=== PATIENT | male | born 1940 | race Caucasian/White ===

== ENCOUNTER 2016-11-20 18:40 | Inpatient (IN) | payer MEDICARE, OTHER ==
[~2016-11-20] VITALS: Ht 172.7 cm; Wt 85.8 kg
[~2016-11-20 18:40] MED LIST: AMLO10TA2 PO; ASPI-496 PO; ATOR40TA78 PO; CHLO25TA PO; CYAN2000 PO; DIPH25TA28 PO; HYDR25TA6 PO; IRON18TA PO; LISI40TA PO; METF500T4 PO; METO-99 PO; OMEP-110 PO; Oxygen NAS; POLY255P PO; PRAV40TA2 PO
[2016-11-20] MEDS ORDERED: ASPIRIN 81 MG TABLET CHEW PO ONE (19:30)
[2016-11-20] MEDS ORDERED: ASPIRIN 81 MG TABLET CHEW ONE (20:35)
[2016-11-20 21:52] LABS: HEMOGLOBIN 11.9 g/dL (13.7-18.0)
[2016-11-20 22:04] LABS: ASPARTATE AMINO TRANSFERASE 8 U/L (15-37); BLOOD UREA NITROGEN 27 mg/dL (7-18)
[2016-11-20 22:13] LABS: IS PT STATUS REG ER OR PRE ER? YES
[2016-11-20] MEDS ORDERED: OMNIPAQUE 350 MG/ML, 100ML BOTTLE ONE (22:16)
[2016-11-20] MEDS ORDERED: SODIUM CHLORIDE 0.9% 1,000ML IVBOLUS ONE (22:30)
[2016-11-20] MEDS ORDERED: LEVOFLOXACIN/PMX 750MG/150ML 150 ML ONE (23:27)
[2016-11-20] MEDS ORDERED: LEVOFLOXACIN/PMX 750MG/150ML 150 ML IV ONE (23:30)
[2016-11-21 01:50] VITALS: BP 128/59
[2016-11-21 02:00] VITALS: BP 128/59
[2016-11-21] MEDS: SODIUM CHLORIDE 0.9% 1,000 ML IV SCH ×2 (02:03→09:38)
[2016-11-21] MEDS ORDERED: HEPARIN 5,000 UNITS/ML, 1ML SQ SCH (02:30)
[2016-11-21] MEDS ORDERED: POLYETHYLENE GLYCOL 17 GM PACKET PO PRN (02:30)
[2016-11-21] MEDS ORDERED: ONDANSETRON ODT 4 MG PO PRN (02:30)
[2016-11-21] MEDS ORDERED: TRAZODONE 50MG TABLET PO PRN (02:30)
[2016-11-21] MEDS ORDERED: ACETAMINOPHEN 325 MG TABLET PO PRN (02:30)
[2016-11-21] MEDS ORDERED: DOCUSATE 100 MG CAPSULE PO PRN (02:30)
[2016-11-21] MEDS ORDERED: LABETALOL 5MG/ML, 20ML IV PRN (02:30)
[2016-11-21] MEDS ORDERED: BISACODYL 10 MG SUPP PR PRN (02:30)
[2016-11-21] MEDS: CEFTRIAXONE PMX 2GM/50ML 50 ML IV SCH (02:51)
[2016-11-21] MEDS: AZITHROMYCIN 500 MG in SODIUM CHLORIDE 0.9% 250 ML IV SCH (03:41)
[2016-11-21 06:07] LABS: HEMOGLOBIN 9.9 g/dL (13.7-18.0)
[2016-11-21 06:17] LABS: BLOOD UREA NITROGEN 24 mg/dL (7-18)
[2016-11-21] MEDS: ALBUTEROL/IPRATROPIUM 2.5MG/0.5MG, 3 ML NPPB SCH ×4 (07:15→20:30)
[2016-11-21 07:28] VITALS: BP 89/46
[2016-11-21] MEDS ORDERED: CHLORTHALIDONE 25 MG TABLET PO SCH (09:00)
[2016-11-21] MEDS ORDERED: ASPIRIN 81 MG TABLET EC PO SCH (09:00)
[2016-11-21] MEDS ORDERED: LISINOPRIL 20 MG TABLET PO SCH (09:00)
[2016-11-21] MEDS: INSULIN ASPART 100 UNITS/ML, PEN SQ-INSULIN SCH ×4 (09:00→21:51)
[2016-11-21] MEDS ORDERED: METOPROLOL TARTRATE 100 MG TABLET PO SCH (09:00)
[2016-11-21] MEDS ORDERED: AMLODIPINE 5 MG TABLET PO SCH (09:00)
[2016-11-21] MEDS: OMEPRAZOLE 20 MG CAPSULE.DR PO SCH (09:40)
[2016-11-21] MEDS: FERROUS SULFATE 325 MG TABLET PO SCH (09:40)
[2016-11-21] MEDS: CYANOCOBALAMIN 1,000 MCG TABLET PO SCH (09:41)
[2016-11-21] MEDS ORDERED: MAGNESIUM SULFATE PMX 2GM/50ML 50 ML IV ONE (11:00)
[2016-11-21 11:58] LABS: HEMOGLOBIN 10.7 g/dL (13.7-18.0)
[2016-11-21 13:28] VITALS: BP 112/59
[2016-11-21] MEDS ORDERED: OMNIPAQUE 350 MG/ML, 100ML BOTTLE ONE (18:06)
[2016-11-21 20:11] VITALS: BP 116/62
[2016-11-21] MEDS: ATORVASTATIN 40 MG TABLET PO SCH (21:50)
[2016-11-22 01:40] VITALS: BP 112/57
[2016-11-22] MEDS: SODIUM CHLORIDE 0.9% 1,000 ML IV SCH ×2 (02:39→12:32)
[2016-11-22] MEDS: CEFTRIAXONE PMX 2GM/50ML 50 ML IV SCH (02:40)
[2016-11-22] MEDS: AZITHROMYCIN 500 MG in SODIUM CHLORIDE 0.9% 250 ML IV SCH (04:10)
[2016-11-22 06:40] VITALS: BP 90/51
[2016-11-22] MEDS: ALBUTEROL/IPRATROPIUM 2.5MG/0.5MG, 3 ML NPPB SCH ×4 (06:55→21:00)
[2016-11-22] MEDS: INSULIN ASPART 100 UNITS/ML, PEN SQ-INSULIN SCH ×3 (08:22→20:41)
[2016-11-22] MEDS: CYANOCOBALAMIN 1,000 MCG TABLET PO SCH (08:53)
[2016-11-22] MEDS: FERROUS SULFATE 325 MG TABLET PO SCH (08:54)
[2016-11-22] MEDS: OMEPRAZOLE 20 MG CAPSULE.DR PO SCH (08:54)
[2016-11-22] MEDS ORDERED: METOPROLOL TARTRATE 100 MG TABLET PO SCH (09:00)
[2016-11-22 12:28] VITALS: BP 125/64
[2016-11-22] MEDS ORDERED: FLUTICASONE/VILANTEROL 200-25MCG/INH INH ONE (13:00)
[2016-11-22 19:58] VITALS: BP 119/58
[2016-11-22] MEDS: ATORVASTATIN 40 MG TABLET PO SCH (20:41)
[2016-11-23] MEDS: CEFTRIAXONE PMX 2GM/50ML 50 ML IV SCH (02:51)
[2016-11-23 03:48] VITALS: BP 116/55
[2016-11-23] MEDS: AZITHROMYCIN 500 MG in SODIUM CHLORIDE 0.9% 250 ML IV SCH (04:20)
[2016-11-23 06:08] LABS: BLOOD UREA NITROGEN 24 mg/dL (7-18)
[2016-11-23 06:41] LABS: HEMOGLOBIN 10.3 g/dL (13.7-18.0)
[2016-11-23 06:42] LABS: DIFF TOTAL CELLS COUNTED 100 CELL DIFF
[2016-11-23 06:45] LABS: ANISOCYTOSIS 1+; HYPOCHROMIA 1+
[2016-11-23 06:46] LABS: POLYCHROMASIA 1+
[2016-11-23 06:47] LABS: VERIFY COUNTS? YES
[2016-11-23 07:06] VITALS: BP 120/52
[2016-11-23] MEDS: ALBUTEROL/IPRATROPIUM 2.5MG/0.5MG, 3 ML NPPB SCH ×3 (07:15→14:16)
[2016-11-23] MEDS ORDERED: AZIT500T4 PO (07:43)
[2016-11-23] MEDS ORDERED: ALBU8.5H3 INH (07:43)
[2016-11-23] MEDS ORDERED: FLUT1BLS INH (07:43)
[2016-11-23] MEDS ORDERED: METH4TAB2 PO (07:43)
[2016-11-23] MEDS ORDERED: CEFD300C2 PO (07:43)
[2016-11-23] MEDS: INSULIN ASPART 100 UNITS/ML, PEN SQ-INSULIN SCH ×2 (08:00→13:00)
[2016-11-23] MEDS ORDERED: FLUTICASONE/VILANTEROL 200-25MCG/INH INH SCH (09:00)
[2016-11-23] MEDS: CYANOCOBALAMIN 1,000 MCG TABLET PO SCH (09:51)
[2016-11-23] MEDS: OMEPRAZOLE 20 MG CAPSULE.DR PO SCH (09:51)
[2016-11-23] MEDS: FERROUS SULFATE 325 MG TABLET PO SCH (09:51)
== END 2016-11-23 18:48 | disposition home or self-care (01) | DRG 871 ==
LOC: ED 20:53 → EDIP 11-21 00:02 → 4WST 11-21 01:47
PROVIDERS: ADMIT Internal Medicine
DX: A41.9 Sepsis, unspecified organism (principal); J96.21 Acute and chronic respiratory failure with hypoxia; J18.9 Pneumonia, unspecified organism; E87.1 Hypo-osmolality and hyponatremia; J44.0 Chronic obstructive pulmonary disease with (acute) lower respiratory infection; J44.1 Chronic obstructive pulmonary disease with (acute) exacerbation; D64.9 Anemia, unspecified; E78.5 Hyperlipidemia, unspecified; E11.22 Type 2 diabetes mellitus with diabetic chronic kidney disease; I25.10 Atherosclerotic heart disease of native coronary artery without angina pectoris; I73.9 Peripheral vascular disease, unspecified; R91.1 Solitary pulmonary nodule; I13.10 Hypertensive heart and chronic kidney disease without heart failure, with stage 1 through stage 4 chronic kidney disease, or unspecified chronic kidney disease; N18.3 Chronic kidney disease, stage 3 (moderate); Z87.891 Personal history of nicotine dependence; Z90.49 Acquired absence of other specified parts of digestive tract; Z88.1 Allergy status to other antibiotic agents; Z82.49 Family history of ischemic heart disease and other diseases of the circulatory system
CPT/HCPCS: 36415; 71020; 71275; 72220; 80048; 80053; 82306; 82607; 82962; 83036; 83735; 83880; 84484; 85014; 85018; 85025; 87040; 93005; 94640; 96361; 96365; 96366; J0456; J0696; J1644; J1956; J7620; Q9967; J3475; J7030; J7050; J7512

== ENCOUNTER → 2016-12-21 | Outpatient (CLI) | payer MEDICARE, OTHER ==
[~2016-12-21] MED LIST changes: +ALBU8.5H3 INH; +AZIT500T77 PO; +CEFD300C37 PO; +FLUT1BLS INH; +METH4TAB2 PO; +PIOG15TA4 PO
== END | disposition home or self-care (01) ==
LOC: RAD 10:27
PROVIDERS: ATTEND Internal Medicine
DX: R91.8 Other nonspecific abnormal finding of lung field (principal); R91.1 Solitary pulmonary nodule; D71 Functional disorders of polymorphonuclear neutrophils
CPT/HCPCS: 71250

== ENCOUNTER 2016-12-22 06:56 | Day surgery (SDC) | payer MEDICARE, OTHER ==
[2016-12-21 10:32] LABS: BLOOD UREA NITROGEN 25 mg/dL (7-18)
[2016-12-21 10:37] LABS: ASPARTATE AMINO TRANSFERASE 5 U/L (15-37)
[~2016-12-22] VITALS: Ht 172.7 cm; Wt 83.0 kg
[~2016-12-22 06:56] MED LIST changes: -PIOG15TA4 PO
[2016-12-22] MEDS ORDERED: LACTATED RINGERS 1,000 ML IV SCH (07:27)
[2016-12-22 07:28] VITALS: BP 119/61
[2016-12-22] MEDS ORDERED: LIDOCAINE 1%, 2ML SQ PRN (07:30)
[2016-12-22] MEDS ORDERED: PIOG15TA4 PO (07:34)
[2016-12-22] MEDS ORDERED: EPHEDRINE 50 MG/ML, 1ML IVPush PRN (08:30)
[2016-12-22] MEDS ORDERED: HYDROmorphone 1 MG/ML, 1ML IV PRN (08:30)
[2016-12-22] MEDS ORDERED: FENTANYL PF 100 MCG/2ML IV PRN (08:30)
[2016-12-22] MEDS ORDERED: METOCLOPRAMIDE 5 MG/ML, 2ML IV PRN (08:30)
[2016-12-22] MEDS ORDERED: OXYcodone 5 MG/5 ML ORAL.SOL UDC PO PRN (08:30)
[2016-12-22] MEDS ORDERED: ACETAMINOPHEN 325 MG TABLET PO PRN (08:30)
[2016-12-22] MEDS ORDERED: LABETALOL 5MG/ML, 20ML IV PRN (08:30)
[2016-12-22] MEDS ORDERED: ONDANSETRON 2MG/ML, 2ML IVPush PRN (08:30)
[2016-12-22] MEDS ORDERED: METOPROLOL 1 MG/ML, 5ML IV PRN (08:30)
[2016-12-22] MEDS ORDERED: hydrALAzine 20 MG/ML, 1ML IV PRN (08:30)
[2016-12-22] MEDS ORDERED: FENTANYL PF 250 MCG/5ML ONE (09:06)
[2016-12-22] MEDS ORDERED: DEXAMETHASONE 4 MG/ML, 1ML ONE (09:30)
[2016-12-22] MEDS ORDERED: PROPOFOL 10 MG/ML, 20ML ONE (09:30)
[2016-12-22] MEDS ORDERED: GLYCOPYRROLATE 0.2MG/1ML ONE (09:30)
[2016-12-22] MEDS ORDERED: ROCURONIUM 10 MG/ML ONE (09:30)
[2016-12-22] MEDS ORDERED: ONDANSETRON 2MG/ML, 2ML ONE (09:30)
[2016-12-22] MEDS ORDERED: PHENYLEPHRINE 10 MG/ML ONE (09:30)
== END 2016-12-22 13:20 | disposition home or self-care (01) ==
LOC: OUT 06:56
PROVIDERS: ATTEND Internal Medicine
DX: R91.8 Other nonspecific abnormal finding of lung field (principal); J44.9 Chronic obstructive pulmonary disease, unspecified; E11.22 Type 2 diabetes mellitus with diabetic chronic kidney disease; I12.9 Hypertensive chronic kidney disease with stage 1 through stage 4 chronic kidney disease, or unspecified chronic kidney disease; N18.3 Chronic kidney disease, stage 3 (moderate); E11.21 Type 2 diabetes mellitus with diabetic nephropathy; E78.5 Hyperlipidemia, unspecified; Z79.84 Long term (current) use of oral hypoglycemic drugs; Z88.3 Allergy status to other anti-infective agents; Z88.8 Allergy status to other drugs, medicaments and biological substances; Z82.49 Family history of ischemic heart disease and other diseases of the circulatory system; Z83.49 Family history of other endocrine, nutritional and metabolic diseases; Z98.52 Vasectomy status
CPT/HCPCS: 31623; 31624; 31627; 31628; 36415; 71010; 80053; 82962; 88112; 88172; 88173; 88177; 88305; 88333; 93005; J1100; J2370; J2405; J2704; J3010; J7120; 31629; 31632; 76000; J3490

== ENCOUNTER → 2017-01-12 | Outpatient (CLI) | payer MEDICARE, OTHER ==
[~2017-01-12] MED LIST changes: +PIOG15TA4 PO
== END | disposition home or self-care (01) ==
LOC: PETCFH 09:22
PROVIDERS: ATTEND Internal Medicine
DX: J98.11 Atelectasis (principal); R91.1 Solitary pulmonary nodule
CPT/HCPCS: 78815; A9552

== ENCOUNTER 2017-04-06 20:38 | Inpatient (IN) | payer MEDICARE, OTHER ==
[~2017-04-06] VITALS: Ht 172.7 cm; Wt 83.4 kg
[~2017-04-06 20:38] MED LIST changes: -ALBU8.5H3 INH; +ALBU8.5H8 INH; +AZIT500T5 PO; -AZIT500T77 PO
[2017-04-06] MEDS ORDERED: SODIUM CHLORIDE FLUSH 10ML SYR IVF ONE (21:00)
[2017-04-06] MEDS ORDERED: ONDANSETRON 2MG/ML, 2ML IVPush ONE (21:00)
[2017-04-06] MEDS ORDERED: MORPHINE SULFATE 4 MG/ML, 1ML ONE (21:19)
[2017-04-06] MEDS ORDERED: ONDANSETRON 2MG/ML, 2ML ONE (21:19)
[2017-04-06] MEDS: MORPHINE SULFATE 4 MG/ML, 1ML IVPush PRN (21:37)
[2017-04-06 21:39] LABS: HEMATOCRIT 38.3 % (39.2-51.8); HEMOGLOBIN 12.7 g/dL (13.7-18.0); WHITE BLOOD COUNT 8.6 x10^3/uL (3.4-10)
[2017-04-06 21:52] LABS: BLOOD UREA NITROGEN 32 mg/dL (7-18)
[2017-04-06 21:57] LABS: ASPARTATE AMINO TRANSFERASE 12 U/L (15-37)
[2017-04-06 21:59] LABS: IS PT STATUS REG ER OR PRE ER? YES
[2017-04-06 23:17] LABS: PATH.CAST-FLAG NOT PRESENT; SPERM-FLAG NOT PRESENT; SRC-FLAG NOT PRESENT; XTAL-FLAG NOT PRESENT; YLC-FLAG NOT PRESENT
[2017-04-07] MEDS ORDERED: SODIUM CHLORIDE 0.9%, 500ML IVBOLUS ONE
[2017-04-07] MEDS ORDERED: MORPHINE SULFATE 4 MG/ML, 1ML ONE (01:01)
[2017-04-07] MEDS: MORPHINE SULFATE 4 MG/ML, 1ML IVPush PRN (01:11)
[2017-04-07] MEDS ORDERED: CEFTRIAXONE PMX 1GM/50ML 50 ML IV ONE (02:00)
[2017-04-07] MEDS ORDERED: AZITHROMYCIN 500 MG in SODIUM CHLORIDE 0.9% 250 ML IV ONE (02:00)
[2017-04-07] MEDS ORDERED: CEFTRIAXONE PMX 1GM/50ML 50 ML ONE (03:01)
[2017-04-07 04:01] VITALS: BP 158/66
[2017-04-07] MEDS ORDERED: SODIUM CHLORIDE 0.9% 1,000 ML IV SCH (05:02)
[2017-04-07] MEDS ORDERED: PROMETHAZINE 25 MG/ML, 1ML IM PRN (05:30)
[2017-04-07] MEDS ORDERED: ONDANSETRON 2MG/ML, 2ML IVPush PRN (05:30)
[2017-04-07] MEDS ORDERED: DOCUSATE 100 MG CAPSULE PO PRN (05:30)
[2017-04-07] MEDS ORDERED: BISACODYL 10 MG SUPP PR PRN (05:30)
[2017-04-07] MEDS ORDERED: POLYETHYLENE GLYCOL 17 GM PACKET PO PRN (05:30)
[2017-04-07] MEDS ORDERED: LABETALOL 5MG/ML, 20ML IVPush PRN (05:30)
[2017-04-07] MEDS ORDERED: hydrALAzine 20 MG/ML, 1ML IVPush PRN (05:30)
[2017-04-07] MEDS ORDERED: ACETAMINOPHEN 325 MG TABLET PO PRN (05:30)
[2017-04-07] MEDS: CEFTRIAXONE PMX 1GM/50ML 50 ML IV SCH (05:30)
[2017-04-07] MEDS: DOXYCYCLINE 100 MG in DEXTROSE 5% 250 ML IV SCH ×2 (06:23→18:34)
[2017-04-07] MEDS: ENOXAPARIN 40 MG/0.4 ML SQ SCH (06:24)
[2017-04-07] MEDS: methylPREDNISolone SOD SUCC 125 MG/2 ML IVPush SCH ×3 (06:24→20:16)
[2017-04-07 06:45] LABS: HEMATOCRIT 32.9 % (39.2-51.8); HEMOGLOBIN 10.9 g/dL (13.7-18.0); WHITE BLOOD COUNT 7.4 x10^3/uL (3.4-10)
[2017-04-07 06:57] LABS: ASPARTATE AMINO TRANSFERASE 6 U/L (15-37); BLOOD UREA NITROGEN 27 mg/dL (7-18)
[2017-04-07 07:03] LABS: IS PT STATUS REG ER OR PRE ER? NO
[2017-04-07 08:02] VITALS: BP 172/74
[2017-04-07] MEDS ORDERED: ALBUTEROL/IPRATROPIUM 2.5MG/0.5MG, 3 ML NPPB PRN (08:30)
[2017-04-07] MEDS: CHLORTHALIDONE 25 MG TABLET PO SCH ×2 (08:55→20:16)
[2017-04-07] MEDS: ASPIRIN 81 MG TABLET EC PO SCH (08:55)
[2017-04-07] MEDS: LISINOPRIL 20 MG TABLET PO SCH (08:55)
[2017-04-07] MEDS: AMLODIPINE 5 MG TABLET PO SCH (08:55)
[2017-04-07] MEDS ORDERED: METOPROLOL TARTRATE 100 MG TABLET PO SCH (09:00)
[2017-04-07] MEDS: FLUTICASONE/VILANTEROL 200-25MCG/INH INH SCH (09:37)
[2017-04-07 12:06] LABS: IS PT STATUS REG ER OR PRE ER? NO
[2017-04-07 13:56] VITALS: BP 168/71
[2017-04-07 18:23] LABS: PROSTATE SPECIFIC ANTIGEN 2.97 ng/mL (0.00-4.00)
[2017-04-07] MEDS: CARVEDILOL 12.5 MG TABLET PO SCH (18:34)
[2017-04-07 19:33] VITALS: BP 136/61
[2017-04-07] MEDS: ATORVASTATIN 40 MG TABLET PO SCH (20:16)
[2017-04-08 01:04] VITALS: BP 132/62
[2017-04-08] MEDS: methylPREDNISolone SOD SUCC 125 MG/2 ML IVPush SCH ×4 (02:37→20:20)
[2017-04-08] MEDS: CEFTRIAXONE PMX 1GM/50ML 50 ML IV SCH (05:31)
[2017-04-08] MEDS: DOXYCYCLINE 100 MG in DEXTROSE 5% 250 ML IV SCH ×2 (06:14→17:41)
[2017-04-08] MEDS: ENOXAPARIN 40 MG/0.4 ML SQ SCH (06:15)
[2017-04-08] MEDS: CARVEDILOL 12.5 MG TABLET PO SCH ×2 (06:15→17:40)
[2017-04-08 07:47] VITALS: BP 143/57
[2017-04-08] MEDS: CHLORTHALIDONE 25 MG TABLET PO SCH ×2 (08:52→20:20)
[2017-04-08] MEDS: FINASTERIDE 5 MG TABLET PO SCH (08:54)
[2017-04-08] MEDS: TAMSULOSIN 0.4 MG CAP.ER.24H PO SCH (08:54)
[2017-04-08] MEDS: FLUTICASONE/VILANTEROL 200-25MCG/INH INH SCH (08:54)
[2017-04-08] MEDS: AMLODIPINE 5 MG TABLET PO SCH (08:54)
[2017-04-08] MEDS: LISINOPRIL 20 MG TABLET PO SCH (08:55)
[2017-04-08 13:08] VITALS: BP 127/67
[2017-04-08 19:05] VITALS: BP 128/58
[2017-04-08] MEDS ORDERED: FUROSEMIDE 20 MG/2 ML IV ONE (20:00)
[2017-04-08] MEDS: ATORVASTATIN 40 MG TABLET PO SCH (20:19)
[2017-04-08] MEDS: INSULIN ASPART 100 UNITS/ML, PEN SQ-INSULIN SCH (22:20)
[2017-04-09 01:53] VITALS: BP 126/53
[2017-04-09] MEDS: methylPREDNISolone SOD SUCC 125 MG/2 ML IVPush SCH ×2 (02:33→09:30)
[2017-04-09] MEDS: CEFTRIAXONE PMX 1GM/50ML 50 ML IV SCH (04:37)
[2017-04-09] MEDS: CARVEDILOL 12.5 MG TABLET PO SCH (06:02)
[2017-04-09] MEDS: DOXYCYCLINE 100 MG in DEXTROSE 5% 250 ML IV SCH (06:02)
[2017-04-09] MEDS: ENOXAPARIN 40 MG/0.4 ML SQ SCH (06:03)
[2017-04-09 06:06] LABS: HEMOGLOBIN 11.4 g/dL (13.7-18.0); WHITE BLOOD COUNT 21.6 x10^3/uL (3.4-10)
[2017-04-09 06:17] LABS: BLOOD UREA NITROGEN 39 mg/dL (7-18)
[2017-04-09 07:37] VITALS: BP 144/60
[2017-04-09] MEDS: FINASTERIDE 5 MG TABLET PO SCH (09:28)
[2017-04-09] MEDS: LISINOPRIL 20 MG TABLET PO SCH (09:29)
[2017-04-09] MEDS: TAMSULOSIN 0.4 MG CAP.ER.24H PO SCH (09:29)
[2017-04-09] MEDS: AMLODIPINE 5 MG TABLET PO SCH (09:29)
[2017-04-09] MEDS: ASPIRIN 81 MG TABLET EC PO SCH (09:29)
[2017-04-09] MEDS: CHLORTHALIDONE 25 MG TABLET PO SCH (09:30)
[2017-04-09] MEDS: FLUTICASONE/VILANTEROL 200-25MCG/INH INH SCH (09:30)
[2017-04-09] MEDS: INSULIN ASPART 100 UNITS/ML, PEN SQ-INSULIN SCH ×2 (09:31→12:35)
[2017-04-09 13:47] VITALS: BP 142/62
[2017-04-09] MEDS ORDERED: FINA5TAB4 PO (14:07)
[2017-04-09] MEDS ORDERED: DOXY100T10 PO (14:07)
[2017-04-09] MEDS ORDERED: CARV12.543 PO (14:07)
[2017-04-09] MEDS ORDERED: PRED5TAB PO (14:07)
[2017-04-09] MEDS ORDERED: TAMS-11 PO (14:07)
[2017-04-09] MEDS ORDERED: DOCU-131 PO (14:07)
[2017-04-09] MEDS ORDERED: CEFD300C37 PO (14:07)
== END 2017-04-09 17:55 | disposition home or self-care (01) | DRG 291 ==
LOC: ED 22:56 → EDIP 04-07 02:36 → 4EST 04-07 03:49
PROVIDERS: ADMIT Internal Medicine; ATTEND Internal Medicine
DX: I13.0 Hypertensive heart and chronic kidney disease with heart failure and stage 1 through stage 4 chronic kidney disease, or unspecified chronic kidney disease (principal); J96.21 Acute and chronic respiratory failure with hypoxia; I71.00 Dissection of unspecified site of aorta; J18.9 Pneumonia, unspecified organism; E11.22 Type 2 diabetes mellitus with diabetic chronic kidney disease; E11.51 Type 2 diabetes mellitus with diabetic peripheral angiopathy without gangrene; N18.3 Chronic kidney disease, stage 3 (moderate); D63.8 Anemia in other chronic diseases classified elsewhere; I50.33 Acute on chronic diastolic (congestive) heart failure; J44.0 Chronic obstructive pulmonary disease with (acute) lower respiratory infection; E87.1 Hypo-osmolality and hyponatremia; J98.11 Atelectasis; J44.1 Chronic obstructive pulmonary disease with (acute) exacerbation; E78.5 Hyperlipidemia, unspecified; K40.90 Unilateral inguinal hernia, without obstruction or gangrene, not specified as recurrent; K57.30 Diverticulosis of large intestine without perforation or abscess without bleeding; N32.3 Diverticulum of bladder; R33.9 Retention of urine, unspecified; M54.5 Low back pain; Z79.82 Long term (current) use of aspirin; Z79.899 Other long term (current) drug therapy; Z90.49 Acquired absence of other specified parts of digestive tract
CPT/HCPCS: 36415; 71010; 74176; 80048; 80053; 80061; 80076; 81001; 82040; 82306; 82607; 82962; 83605; 83690; 83735; 83880; 84145; 84153; 84443; 84484; 85025; 87040; 93005; 93306; 96361; 96374; 96375; J0696; J1650; J1815; J2405; J7060; J1940; J2930; J7030; J7040

== ENCOUNTER → 2017-12-19 | Outpatient (CLI) | payer MEDICARE, OTHER ==
[~2017-12-19] MED LIST changes: +CARV12.543 PO; +DOCU-131 PO; +DOXY100T10 PO; +FINA5TAB4 PO; +PRED5TAB PO; +TAMS-11 PO
== END ==
LOC: CVU 09:39
PROVIDERS: ATTEND Internal Medicine Cardiovascular Disease
DX: I65.23 Occlusion and stenosis of bilateral carotid arteries (principal); I25.10 Atherosclerotic heart disease of native coronary artery without angina pectoris; E11.9 Type 2 diabetes mellitus without complications; J44.9 Chronic obstructive pulmonary disease, unspecified; Z87.891 Personal history of nicotine dependence; Z95.5 Presence of coronary angioplasty implant and graft
CPT/HCPCS: 93880

== ENCOUNTER 2018-04-16 04:43 | Inpatient (IN) | payer MEDICARE, OTHER ==
[~2018-04-16] VITALS: Ht 172.7 cm; Wt 79.1 kg
[~2018-04-16 04:43] MED LIST changes: -AMLO10TA2 PO; +AMLO10TA6 PO; +METF500T17 PO; -METF500T4 PO
[2018-04-16 05:45] LABS: ALANINE AMINOTRANSFERASE 21 U/L (12-78); ALBUMIN 3.1 g/dL (3.4-5.0); ANION GAP 6 mmol/L (5-15); CALCIUM 8.8 mg/dL (8.5-10.1); CHLORIDE 108 mmol/L (98-107); CREATININE 1.48 mg/dL (0.7-1.3)
[2018-04-16 05:49] LABS: ALKALINE PHOSPHATASE 100 U/L (45-117); BILIRUBIN,TOTAL 0.3 mg/dL (0.2-1.0); TOTAL PROTEIN 7.7 g/dL (6.4-8.2); TROPONIN I < 0.015 ng/mL (0.000-0.045)
[2018-04-16 05:54] LABS: MEAN CORPUSCULAR HEMOGLOBIN 31.3 pg (27.5-34.5); MEAN CORPUSCULAR HGB CONC 34.2 g/dL (33.2-36.2); MEAN CORPUSCULAR VOLUME 91.5 fL (81-97); MEAN PLATELET VOLUME 6.7 fL (7.4-10.4); PLATELET COUNT 280 x10^3/uL (130-400); RED BLOOD COUNT 4.04 x10^6/uL (4.38-5.82); RED CELL DISTRIBUTION WIDTH 15.2 % (9.4-14.8)
[2018-04-16 06:23] LABS: BASOPHILS # (AUTO) 0.04 x10^3/uL (0-0.1); BASOPHILS % (AUTO) 1 % (0-1); EOSINOPHILS # (AUTO) 0.77 x10^3/uL (0-0.4); EOSINOPHILS % (AUTO) 9 % (1-7); LYMPHOCYTES # (AUTO) 1.14 x10^3/uL (1-3.4); LYMPHOCYTES % (AUTO) 14 % (22-44); MD SCAN; MONOCYTES # (AUTO) 0.87 x10^3/uL (0.2-0.8); MONOCYTES % (AUTO) 11 % (2-9); NEUTROPHILS # (AUTO) 5.39 x10^3/uL (1.8-6.8); NEUTROPHILS % (AUTO) 66 % (42-75)
[2018-04-16] MEDS ORDERED: FINA5TAB4 PO (06:45)
[2018-04-16] MEDS ORDERED: IPRA3AMP30 IH (06:45)
[2018-04-16] MEDS ORDERED: [UNRECOGNIZED DRUG - OTHER] (06:45)
[2018-04-16] MEDS ORDERED: HYDR-3342 PO (06:45)
[2018-04-16] MEDS ORDERED: SPIRIVA (06:45)
[2018-04-16] MEDS ORDERED: [UNRECOGNIZED DRUG - OTHER] PEG (06:45)
[2018-04-16] MEDS ORDERED: CHOL200040 PO (06:47)
[2018-04-16] MEDS ORDERED: IRON PO (06:47)
[2018-04-16] MEDS ORDERED: GUAIFENESIN/DM 200-20MG, 10ML UDC PO PRN (07:30)
[2018-04-16] MEDS ORDERED: ACETAMINOPHEN 325 MG TABLET PO PRN (07:30)
[2018-04-16] MEDS ORDERED: hydrALAzine 20 MG/ML, 1ML IVPush PRN (07:30)
[2018-04-16] MEDS ORDERED: DOCUSATE 100 MG CAPSULE PO PRN ×2 (07:30)
[2018-04-16] MEDS ORDERED: TRAZODONE 50MG TABLET PO PRN (07:30)
[2018-04-16] MEDS ORDERED: ONDANSETRON ODT 4 MG PO PRN (07:30)
[2018-04-16] MEDS ORDERED: BISACODYL 10 MG SUPP PR PRN (07:30)
[2018-04-16] MEDS ORDERED: AZITHROMYCIN 500 MG in SODIUM CHLORIDE 0.9% 250 ML IV ONE (08:00)
[2018-04-16 08:08] VITALS: BP 115/69
[2018-04-16 08:54] VITALS: BP 115/69
[2018-04-16] MEDS ORDERED: FINASTERIDE 5 MG TABLET PO SCH (09:00)
[2018-04-16 09:07] LABS: HEMOGLOBIN A1C 6.6 % (4.2-6.3)
[2018-04-16 09:12] LABS: FREE T4 (FREE THYROXINE) 1.03 ng/dL (0.76-1.46); THYROID STIMULATING HORMONE 2.72 mIU/L (0.358-3.740)
[2018-04-16] MEDS: FLUTICASONE/VILANTEROL 200-25MCG/INH INH SCH (10:56)
[2018-04-16 10:57] VITALS: BP 126/61
[2018-04-16] MEDS: methylPREDNISolone SOD SUCC 125 MG/2 ML IVPush SCH ×3 (10:57→21:46)
[2018-04-16] MEDS: HEPARIN 5,000 UNITS/ML, 1ML SQ SCH ×2 (10:57→21:45)
[2018-04-16] MEDS: FERROUS SULFATE 325 MG TABLET PO SCH (10:58)
[2018-04-16] MEDS: OMEPRAZOLE 20 MG CAPSULE.DR PO SCH (10:58)
[2018-04-16] MEDS: CHOLECALCIFEROL 1,000 UNIT TABLET PO SCH ×2 (10:58→21:45)
[2018-04-16] MEDS: ASPIRIN 81 MG TABLET EC PO SCH (10:59)
[2018-04-16] MEDS: PIOGLITAZONE 15 MG TABLET PO SCH (10:59)
[2018-04-16] MEDS: CYANOCOBALAMIN 1,000 MCG TABLET PO SCH (10:59)
[2018-04-16] MEDS ORDERED: ALBUTEROL SULFATE 2.5 MG/3 ML HHN PRN (11:00)
[2018-04-16] MEDS: ALBUTEROL/IPRATROPIUM 2.5MG/0.5MG, 3 ML HHN SCH ×3 (11:00→19:23)
[2018-04-16] MEDS: TAMSULOSIN 0.4 MG CAP.ER.24H PO SCH (11:00)
[2018-04-16] MEDS: CHLORTHALIDONE 25 MG TABLET PO SCH ×2 (11:00→21:46)
[2018-04-16] MEDS: INSULIN LISPRO 100 UNITS/ML, PEN SQ-INSULIN SCH ×3 (11:00→22:05)
[2018-04-16] MEDS: FINASTERIDE 5 MG TABLET PO SCH (11:01)
[2018-04-16] MEDS: AMLODIPINE 10 MG TAB PO SCH (11:01)
[2018-04-16] MEDS: SODIUM CHLORIDE 0.9% 1,000 ML IV SCH (11:08)
[2018-04-16] MEDS: CEFTRIAXONE 1,000 MG in SODIUM CHLORIDE 0.9% 50 ML IV SCH (11:08)
[2018-04-16 12:41] VITALS: BP 123/62
[2018-04-16 16:19] LABS: CREATININE,URINE RANDOM 62.7 mg/dL
[2018-04-16] MEDS: CARVEDILOL 12.5 MG TABLET PO SCH (18:15)
[2018-04-16 19:21] VITALS: BP 122/61
[2018-04-16] MEDS: ATORVASTATIN 40 MG TABLET PO SCH (21:45)
[2018-04-17 04:00] VITALS: BP 122/64
[2018-04-17] MEDS: methylPREDNISolone SOD SUCC 125 MG/2 ML IVPush SCH (05:03)
[2018-04-17] MEDS: CARVEDILOL 12.5 MG TABLET PO SCH ×2 (05:03→17:06)
[2018-04-17] MEDS: SODIUM CHLORIDE 0.9% 1,000 ML IV SCH ×2 (05:03→16:24)
[2018-04-17] MEDS: HEPARIN 5,000 UNITS/ML, 1ML SQ SCH ×3 (05:03→21:23)
[2018-04-17 05:56] LABS: BASOPHILS % (AUTO) 0 % (0-1); EOSINOPHILS % (AUTO) 0 % (1-7); LYMPHOCYTES # (AUTO) 0.93 x10^3/uL (1-3.4); LYMPHOCYTES % (AUTO) 6 % (22-44); MD NO; MEAN CORPUSCULAR HEMOGLOBIN 30.8 pg (27.5-34.5); MEAN CORPUSCULAR HGB CONC 33.6 g/dL (33.2-36.2); MEAN CORPUSCULAR VOLUME 91.7 fL (81-97); MONOCYTES # (AUTO) 0.04 x10^3/uL (0.2-0.8); MONOCYTES % (AUTO) 0 % (2-9); NEUTROPHILS # (AUTO) 13.66 x10^3/uL (1.8-6.8); NEUTROPHILS % (AUTO) 93 % (42-75); PLATELET COUNT 267 x10^3/uL (130-400); RED BLOOD COUNT 3.79 x10^6/uL (4.38-5.82); RED CELL DISTRIBUTION WIDTH 15.3 % (9.4-14.8)
[2018-04-17 06:09] LABS: ANION GAP 9 mmol/L (5-15); CALCIUM 8.3 mg/dL (8.5-10.1); CHLORIDE 107 mmol/L (98-107)
[2018-04-17 06:10] LABS: CREATININE 1.35 mg/dL (0.7-1.3)
[2018-04-17] MEDS: ALBUTEROL/IPRATROPIUM 2.5MG/0.5MG, 3 ML HHN SCH ×4 (07:08→19:22)
[2018-04-17 07:10] VITALS: BP 159/71
[2018-04-17] MEDS: CEFTRIAXONE 1,000 MG in SODIUM CHLORIDE 0.9% 50 ML IV SCH (07:50)
[2018-04-17] MEDS: INSULIN LISPRO 100 UNITS/ML, PEN SQ-INSULIN SCH ×4 (07:51→21:27)
[2018-04-17] MEDS: CYANOCOBALAMIN 1,000 MCG TABLET PO SCH (09:00)
[2018-04-17] MEDS: TAMSULOSIN 0.4 MG CAP.ER.24H PO SCH (09:00)
[2018-04-17] MEDS: AMLODIPINE 10 MG TAB PO SCH (09:01)
[2018-04-17] MEDS: FINASTERIDE 5 MG TABLET PO SCH (09:01)
[2018-04-17] MEDS: OMEPRAZOLE 20 MG CAPSULE.DR PO SCH (09:01)
[2018-04-17] MEDS: PIOGLITAZONE 15 MG TABLET PO SCH (09:01)
[2018-04-17] MEDS: CHOLECALCIFEROL 1,000 UNIT TABLET PO SCH ×2 (09:01→21:21)
[2018-04-17] MEDS: FERROUS SULFATE 325 MG TABLET PO SCH (09:01)
[2018-04-17] MEDS: CHLORTHALIDONE 25 MG TABLET PO SCH ×2 (09:01→21:27)
[2018-04-17] MEDS: FLUTICASONE/VILANTEROL 200-25MCG/INH INH SCH (09:03)
[2018-04-17 13:48] VITALS: BP 126/64
[2018-04-17 19:22] VITALS: BP 152/67
[2018-04-17] MEDS: ATORVASTATIN 40 MG TABLET PO SCH (21:22)
[2018-04-18 03:45] VITALS: BP 130/56
[2018-04-18] MEDS: HEPARIN 5,000 UNITS/ML, 1ML SQ SCH (05:18)
[2018-04-18] MEDS: CARVEDILOL 12.5 MG TABLET PO SCH (05:21)
[2018-04-18] MEDS: INSULIN LISPRO 100 UNITS/ML, PEN SQ-INSULIN SCH (07:16)
[2018-04-18 07:20] VITALS: BP 146/67
[2018-04-18] MEDS: ALBUTEROL/IPRATROPIUM 2.5MG/0.5MG, 3 ML HHN SCH (07:26)
[2018-04-18 07:31] LABS: MEAN CORPUSCULAR HEMOGLOBIN 30.2 pg (27.5-34.5); MEAN CORPUSCULAR HGB CONC 33.1 g/dL (33.2-36.2); MEAN CORPUSCULAR VOLUME 91.5 fL (81-97); MEAN PLATELET VOLUME 6.6 fL (7.4-10.4); PLATELET COUNT 320 x10^3/uL (130-400); RED BLOOD COUNT 4.03 x10^6/uL (4.38-5.82); RED CELL DISTRIBUTION WIDTH 15.3 % (9.4-14.8)
[2018-04-18 07:37] LABS: ANION GAP 9 mmol/L (5-15); CALCIUM 8.5 mg/dL (8.5-10.1); CHLORIDE 107 mmol/L (98-107); CREATININE 1.34 mg/dL (0.7-1.3)
[2018-04-18] MEDS ORDERED: CEFD300C37 PO (07:46)
[2018-04-18] MEDS ORDERED: PRED10TA PO (07:46)
[2018-04-18 07:48] LABS: MD YES
[2018-04-18 07:49] LABS: BAND#(MANUAL) 0.21 x10^3/uL; BANDS%(MANUAL) 1 % (0-7); LYMPH#(MANUAL) 1.89 x10^3/uL (1-3.4); LYMPHS% (MANUAL) 9 % (22-44); MONOS#(MANUAL) 0.42 x10^3/uL (0.3-2.7); MONOS% (MANUAL) 2 % (2-9); SEG#(MANUAL) 18.48 x10^3/uL (1.8-6.8); SEGS% (MANUAL) 88 % (42-75)
[2018-04-18 07:50] LABS: <PLATELET ESTIMATE> ADEQUATE; <PLT MORPHOLOGY> NORMAL PLT MORPH; ANISOCYTOSIS 1+
[2018-04-18] MEDS: CEFTRIAXONE 1,000 MG in SODIUM CHLORIDE 0.9% 50 ML IV SCH (08:24)
[2018-04-18] MEDS: FLUTICASONE/VILANTEROL 200-25MCG/INH INH SCH (08:24)
[2018-04-18] MEDS: PIOGLITAZONE 15 MG TABLET PO SCH (08:26)
[2018-04-18] MEDS: CHLORTHALIDONE 25 MG TABLET PO SCH (08:26)
[2018-04-18] MEDS: CYANOCOBALAMIN 1,000 MCG TABLET PO SCH (08:26)
[2018-04-18] MEDS: AMLODIPINE 10 MG TAB PO SCH (08:26)
[2018-04-18] MEDS: OMEPRAZOLE 20 MG CAPSULE.DR PO SCH (08:26)
[2018-04-18] MEDS: TAMSULOSIN 0.4 MG CAP.ER.24H PO SCH (08:26)
[2018-04-18] MEDS: FERROUS SULFATE 325 MG TABLET PO SCH (08:26)
[2018-04-18] MEDS: CHOLECALCIFEROL 1,000 UNIT TABLET PO SCH (08:26)
[2018-04-18] MEDS: ASPIRIN 81 MG TABLET EC PO SCH (08:26)
[2018-04-18] MEDS: FINASTERIDE 5 MG TABLET PO SCH (08:30)
== END 2018-04-18 10:10 | disposition home or self-care (01) | DRG 682 ==
LOC: ED 05:57 → 3NE 06:24 → DCLOUNGE 04-18 09:58
PROVIDERS: ADMIT Hospitalist; ATTEND Hospitalist
DX: N17.0 Acute kidney failure with tubular necrosis (principal); J96.21 Acute and chronic respiratory failure with hypoxia; R04.2 Hemoptysis; J43.9 Emphysema, unspecified; E11.22 Type 2 diabetes mellitus with diabetic chronic kidney disease; I25.10 Atherosclerotic heart disease of native coronary artery without angina pectoris; T38.0X5A Adverse effect of glucocorticoids and synthetic analogues, initial encounter; Z87.01 Personal history of pneumonia (recurrent); E11.51 Type 2 diabetes mellitus with diabetic peripheral angiopathy without gangrene; I12.9 Hypertensive chronic kidney disease with stage 1 through stage 4 chronic kidney disease, or unspecified chronic kidney disease; D64.9 Anemia, unspecified; N18.9 Chronic kidney disease, unspecified; D72.828 Other elevated white blood cell count; Z79.4 Long term (current) use of insulin; Z87.891 Personal history of nicotine dependence; Z99.81 Dependence on supplemental oxygen; Z90.49 Acquired absence of other specified parts of digestive tract; Y92.89 Other specified places as the place of occurrence of the external cause
CPT/HCPCS: 36415; 71045; 80048; 80053; 82436; 82570; 82962; 83036; 83880; 84133; 84300; 84439; 84443; 84484; 85025; 87040; 87070; 87205; 93005; 94640; 99285; G0378; J0456; J0696; J1644; J7620; J1815; J2930; J7030; J7050; J7512

== ENCOUNTER → 2018-05-08 | Outpatient (CLI) | payer MEDICARE, OTHER ==
[~2018-05-08] MED LIST changes: +CHOL200040 PO; +HYDR-3342 PO; +IPRA3AMP30 IH; +IRON PO; +PRED10TA PO; +SPIRIVA; +[UNRECOGNIZED DRUG - OTHER]; +[UNRECOGNIZED DRUG - OTHER] PEG
== END | disposition home or self-care (01) ==
LOC: CFH 14:30
PROVIDERS: ATTEND Nurse Practitioner
DX: J43.9 Emphysema, unspecified (principal); I70.0 Atherosclerosis of aorta; J98.11 Atelectasis; I50.9 Heart failure, unspecified; E11.9 Type 2 diabetes mellitus without complications; Z87.891 Personal history of nicotine dependence
CPT/HCPCS: 71250

== ENCOUNTER 2018-05-26 11:05 | Inpatient (IN) | payer MEDICARE, OTHER ==
[~2018-05-26] VITALS: Ht 172.7 cm; Wt 76.7 kg
[2018-05-26] MEDS ORDERED: SODIUM CHLORIDE FLUSH 10ML SYR IVF ONE (12:00)
[2018-05-26] MEDS ORDERED: SODIUM CHLORIDE 0.9% 1,000ML IVBOLUS ONE (12:00)
[2018-05-26 12:08] LABS: BASOPHILS # (AUTO) 0.01 x10^3/uL (0-0.1); BASOPHILS % (AUTO) 0 % (0-1); EOSINOPHILS # (AUTO) 0.05 x10^3/uL (0-0.4); EOSINOPHILS % (AUTO) 1 % (1-7); LYMPHOCYTES # (AUTO) 1.14 x10^3/uL (1-3.4); LYMPHOCYTES % (AUTO) 14 % (22-44); MD NO; MEAN CORPUSCULAR HEMOGLOBIN 30.9 pg (27.5-34.5); MEAN CORPUSCULAR HGB CONC 33.9 g/dL (33.2-36.2); MEAN CORPUSCULAR VOLUME 91.2 fL (81-97); MEAN PLATELET VOLUME 6.3 fL (7.4-10.4); MONOCYTES # (AUTO) 0.75 x10^3/uL (0.2-0.8); MONOCYTES % (AUTO) 9 % (2-9); NEUTROPHILS # (AUTO) 6.15 x10^3/uL (1.8-6.8); NEUTROPHILS % (AUTO) 76 % (42-75); PLATELET COUNT 368 x10^3/uL (130-400); RED BLOOD COUNT 3.97 x10^6/uL (4.38-5.82); RED CELL DISTRIBUTION WIDTH 16.1 % (9.4-14.8)
[2018-05-26 12:20] LABS: ANION GAP 6 mmol/L (5-15); CALCIUM 8.6 mg/dL (8.5-10.1); CHLORIDE 110 mmol/L (98-107)
[2018-05-26 12:24] LABS: ALANINE AMINOTRANSFERASE 23 U/L (12-78); ALKALINE PHOSPHATASE 87 U/L (45-117); BILIRUBIN,TOTAL 0.3 mg/dL (0.2-1.0); CREATININE 1.34 mg/dL (0.7-1.3); TOTAL PROTEIN 7.5 g/dL (6.4-8.2)
[2018-05-26] MEDS ORDERED: DEXTROSE 4 GM TAB.CHEW PO PRN (14:30)
[2018-05-26] MEDS ORDERED: hydrALAzine 20 MG/ML, 1ML IVPush PRN (14:30)
[2018-05-26] MEDS ORDERED: LABETALOL 5MG/ML, 20ML IVPush PRN (14:30)
[2018-05-26] MEDS ORDERED: DEXTROSE 50%, 50ML SYRINGE IVPush PRN (14:30)
[2018-05-26] MEDS ORDERED: GLUCAGON 1 MG IM PRN (14:30)
[2018-05-26] MEDS ORDERED: ACETAMINOPHEN 325 MG TABLET PO PRN (14:30)
[2018-05-26 14:55] VITALS: BP 143/56
[2018-05-26 15:01] LABS: THYROID STIMULATING HORMONE 2.21 mIU/L (0.358-3.740)
[2018-05-26 15:25] LABS: HEMOGLOBIN A1C 6.6 % (4.2-6.3)
[2018-05-26] MEDS: ALBUTEROL/IPRATROPIUM 2.5MG/0.5MG, 3 ML HHN SCH ×2 (15:50→19:49)
[2018-05-26] MEDS ORDERED: ALBUTEROL SULFATE 2.5 MG/3 ML HHN SCH (16:00)
[2018-05-26] MEDS: INSULIN LISPRO 100 UNITS/ML, PEN SQ-INSULIN SCH ×2 (16:00→21:00)
[2018-05-26] MEDS: CARVEDILOL 12.5 MG TABLET PO SCH (16:33)
[2018-05-26] MEDS: HEPARIN 5,000 UNITS/ML, 1ML SQ SCH ×2 (16:34→21:02)
[2018-05-26] MEDS: SODIUM CHLORIDE 0.9% 1,000 ML IV SCH (16:34)
[2018-05-26 18:30] VITALS: BP 123/39
[2018-05-26 19:04] VITALS: BP 148/63
[2018-05-26] MEDS: SODIUM CHLORIDE FLUSH 10ML SYR IVF SCH (21:00)
[2018-05-26] MEDS: CHOLECALCIFEROL 1000 UNIT PO SCH (21:00)
[2018-05-26] MEDS ORDERED: ATORVASTATIN 40 MG TABLET PO SCH (21:00)
[2018-05-27 00:50] VITALS: BP 130/60
[2018-05-27] MEDS: SODIUM CHLORIDE 0.9% 1,000 ML IV SCH ×2 (02:04→10:41)
[2018-05-27 04:21] LABS: BASOPHILS # (AUTO) 0.03 x10^3/uL (0-0.1); BASOPHILS % (AUTO) 0 % (0-1); EOSINOPHILS # (AUTO) 0.08 x10^3/uL (0-0.4); EOSINOPHILS % (AUTO) 1 % (1-7); LYMPHOCYTES # (AUTO) 1.47 x10^3/uL (1-3.4); LYMPHOCYTES % (AUTO) 16 % (22-44); MD NO; MEAN CORPUSCULAR HGB CONC 33.6 g/dL (33.2-36.2); MEAN CORPUSCULAR VOLUME 92.2 fL (81-97); MEAN PLATELET VOLUME 6.2 fL (7.4-10.4); MONOCYTES # (AUTO) 0.89 x10^3/uL (0.2-0.8); MONOCYTES % (AUTO) 10 % (2-9); NEUTROPHILS # (AUTO) 6.55 x10^3/uL (1.8-6.8); NEUTROPHILS % (AUTO) 73 % (42-75); PLATELET COUNT 325 x10^3/uL (130-400); RED BLOOD COUNT 3.46 x10^6/uL (4.38-5.82)
[2018-05-27 04:22] LABS: ANION GAP 9 mmol/L (5-15); CALCIUM 8.1 mg/dL (8.5-10.1); CHLORIDE 112 mmol/L (98-107); CREATININE 0.97 mg/dL (0.7-1.3)
[2018-05-27 04:25] LABS: CLOSTRIDIUM DIFFICILE ANTIGEN NEGATIVE; CLOSTRIDIUM DIFFICILE TOXIN NEGATIVE (Negative)
[2018-05-27] MEDS: HEPARIN 5,000 UNITS/ML, 1ML SQ SCH ×2 (05:59→14:00)
[2018-05-27] MEDS: CARVEDILOL 12.5 MG TABLET PO SCH ×2 (05:59→18:00)
[2018-05-27] MEDS: INSULIN LISPRO 100 UNITS/ML, PEN SQ-INSULIN SCH ×3 (07:00→16:00)
[2018-05-27 08:01] VITALS: BP 120/54
[2018-05-27] MEDS: ALBUTEROL/IPRATROPIUM 2.5MG/0.5MG, 3 ML HHN SCH ×3 (08:27→16:47)
[2018-05-27] MEDS: AMLODIPINE 10 MG TAB PO SCH ×2 (08:46→08:56)
[2018-05-27] MEDS: LISINOPRIL 20 MG TABLET PO SCH ×2 (08:47→08:56)
[2018-05-27 08:49] VITALS: BP 102/44
[2018-05-27] MEDS: SODIUM CHLORIDE FLUSH 10ML SYR IVF SCH (08:56)
[2018-05-27] MEDS: CHOLECALCIFEROL 1000 UNIT PO SCH (08:57)
[2018-05-27] MEDS ORDERED: TAMSULOSIN 0.4 MG CAP.ER.24H PO SCH (09:00)
[2018-05-27] MEDS ORDERED: FLUTICASONE/VILANTEROL 200-25MCG/INH INH SCH (09:00)
[2018-05-27] MEDS ORDERED: FINASTERIDE 5 MG TABLET PO SCH (09:00)
[2018-05-27] MEDS ORDERED: CYANOCOBALAMIN 1,000 MCG TABLET PO SCH (09:00)
[2018-05-27 12:24] VITALS: BP 145/69
[2018-05-27] MEDS ORDERED: LOPE2CAP94 PO (15:18)
[2018-05-27 16:36] VITALS: BP 122/57
[2018-05-28] MEDS ORDERED: ASPIRIN 81 MG TABLET EC PO SCH (09:00)
== END 2018-05-27 18:00 | disposition home or self-care (01) | DRG 393 ==
LOC: ED 12:57 → EDIP 13:50 → 3NW 14:42
PROVIDERS: ADMIT Hospitalist; ATTEND Hospitalist
DX: K52.1 Toxic gastroenteritis and colitis (principal); N17.0 Acute kidney failure with tubular necrosis; J96.10 Chronic respiratory failure, unspecified whether with hypoxia or hypercapnia; E11.22 Type 2 diabetes mellitus with diabetic chronic kidney disease; E11.51 Type 2 diabetes mellitus with diabetic peripheral angiopathy without gangrene; I12.9 Hypertensive chronic kidney disease with stage 1 through stage 4 chronic kidney disease, or unspecified chronic kidney disease; K21.9 Gastro-esophageal reflux disease without esophagitis; K59.00 Constipation, unspecified; I25.10 Atherosclerotic heart disease of native coronary artery without angina pectoris; D64.9 Anemia, unspecified; N18.9 Chronic kidney disease, unspecified; Z82.49 Family history of ischemic heart disease and other diseases of the circulatory system; Z87.891 Personal history of nicotine dependence; Z88.1 Allergy status to other antibiotic agents; Z88.8 Allergy status to other drugs, medicaments and biological substances; Z91.048 Other nonmedicinal substance allergy status; T36.95XA Adverse effect of unspecified systemic antibiotic, initial encounter
CPT/HCPCS: 36415; 74021; 80048; 80053; 82962; 83036; 83605; 83690; 84443; 85025; 87046; 87324; 87427; 89055; 94640; 99285; G0378; J1644; J7620; J7030

== ENCOUNTER 2018-11-01 22:55 | Emergency (ER) | payer MEDICARE, OTHER ==
[~2018-11-01] VITALS: Ht 172.7 cm; Wt 81.0 kg
[~2018-11-01 22:55] MED LIST changes: -AMLO10TA6 PO; +AMLO10TA8 PO; +LOPE2CAP94 PO; -POLY255P PO; +[UNRECOGNIZED DRUG - CODE] PO
--- NOTE | 2018-11-01 23:04 | NUR ---
PT 85% ON RA. PT PLACED ON 2L O2 AND IS 92%
--- NOTE | 2018-11-01 23:26 | NUR ---
pt in gown in [facility]; dr. ortiz at . pt educated on er process and poc and verbalizes understanding. call light is within reach. pt denies any needs at this time. pt attached to vs machines and desk monitor. vss at this time.
--- NOTE | 2018-11-01 23:29 | NUR ---
TP RN: RT PAGED
[2018-11-01] MEDS ORDERED: AZITHROMYCIN 500 MG TABLET PO ONE (23:30)
[2018-11-01] MEDS ORDERED: AZITHROMYCIN 250 MG TABLET ONE (23:30)
[2018-11-01] MEDS ORDERED: SODIUM CHLORIDE FLUSH 10ML SYR IVF ONE (23:30)
[2018-11-01] MEDS ORDERED: ALBUTEROL SULFATE 2.5 MG/3 ML NPPB ONE (23:30)
--- NOTE | 2018-11-01 23:33 | NUR ---
pt medicated per oct. rt at bs.
[2018-11-01 23:39] LABS: BASOPHILS # (AUTO) 0.05 x10^3/uL (0-0.1); BASOPHILS % (AUTO) 1 % (0-1); EOSINOPHILS # (AUTO) 0.35 x10^3/uL (0-0.4); EOSINOPHILS % (AUTO) 5 % (1-7); LYMPHOCYTES # (AUTO) 1.31 x10^3/uL (1-3.4); LYMPHOCYTES % (AUTO) 19 % (22-44); MD NO; MEAN CORPUSCULAR HEMOGLOBIN 30.7 pg (27.5-34.5); MEAN CORPUSCULAR HGB CONC 33.9 g/dL (33.2-36.2); MEAN CORPUSCULAR VOLUME 90.7 fL (81-97); MONOCYTES # (AUTO) 1.02 x10^3/uL (0.2-0.8); MONOCYTES % (AUTO) 15 % (2-9); NEUTROPHILS # (AUTO) 4.12 x10^3/uL (1.8-6.8); NEUTROPHILS % (AUTO) 60 % (42-75); PLATELET COUNT 256 x10^3/uL (130-400); RED BLOOD COUNT 3.86 x10^6/uL (4.38-5.82)
[2018-11-01 23:49] LABS: ALANINE AMINOTRANSFERASE 42 U/L (12-78); ALBUMIN 2.8 g/dL (3.4-5.0); ANION GAP 6 mmol/L (5-15); CALCIUM 8.2 mg/dL (8.5-10.1); CHLORIDE 113 mmol/L (98-107)
[2018-11-01 23:53] VITALS: BP 145/47
[2018-11-01 23:53] LABS: ALKALINE PHOSPHATASE 106 U/L (45-117); BILIRUBIN,TOTAL 0.4 mg/dL (0.2-1.0); TROPONIN I 0.043 ng/mL (0.000-0.045)
--- NOTE | 2018-11-02 01:08 | NUR ---
pt d/c with d/c summary and scripts. all questions answered. pt ambulated to registration desk with steady gait for d/c home. pt denies any other needs pertaining to this visit.
== END 2018-11-02 01:11 | disposition home or self-care (01) ==
LOC: ED 23:59
DX: J44.1 Chronic obstructive pulmonary disease with (acute) exacerbation (principal); I10 Essential (primary) hypertension; E11.9 Type 2 diabetes mellitus without complications; Z87.891 Personal history of nicotine dependence
CPT/HCPCS: 36415; 71045; 80053; 83880; 84484; 85025; 93005; 94640; 99284; J7512; J7613

== ENCOUNTER 2019-05-30 15:30 | Inpatient (IN) | payer MEDICARE, OTHER ==
[~2019-05-30] VITALS: Ht 172.7 cm; Wt 67.0 kg
[~2019-05-30 15:30] MED LIST changes: +LOPE-114 PO; -LOPE2CAP94 PO
[2019-05-30] MEDS ORDERED: SODIUM CHLORIDE FLUSH 10ML SYR IVF ONE (16:30)
[2019-05-30] MEDS ORDERED: DIGOXIN 0.25 MG/ML, 2ML IVPush ONE (16:30)
[2019-05-30] MEDS ORDERED: DIGOXIN 0.25 MG/ML, 2ML ONE (16:33)
[2019-05-30] MEDS ORDERED: ENOXAPARIN 80 MG/0.8 ML ONE (16:33)
[2019-05-30 16:41] LABS: BASOPHILS # (AUTO) 0.01 x10^3/uL (0-0.1); BASOPHILS % (AUTO) 0 % (0-1); EOSINOPHILS # (AUTO) 0.19 x10^3/uL (0-0.4); EOSINOPHILS % (AUTO) 3 % (1-7); LYMPHOCYTES # (AUTO) 0.95 x10^3/uL (1-3.4); LYMPHOCYTES % (AUTO) 14 % (22-44); MD NO; MEAN CORPUSCULAR HEMOGLOBIN 29.7 pg (27.5-34.5); MEAN CORPUSCULAR HGB CONC 32.7 g/dL (33.2-36.2); MEAN CORPUSCULAR VOLUME 90.9 fL (81-97); MONOCYTES # (AUTO) 0.61 x10^3/uL (0.2-0.8); MONOCYTES % (AUTO) 9 % (2-9); NEUTROPHILS # (AUTO) 4.88 x10^3/uL (1.8-6.8); NEUTROPHILS % (AUTO) 73 % (42-75); PLATELET COUNT 307 x10^3/uL (130-400); RED BLOOD COUNT 3.85 x10^6/uL (4.38-5.82); RED CELL DISTRIBUTION WIDTH 15.6 % (9.4-14.8)
--- NOTE | 2019-05-30 16:44 | NUR ---
PT PRESENTED TO ER SOB MORE THAN USUAL AND STATES HE FEELS HIS HB FAST BUT THAT HE HAS FELT THAT BEFORE. MEDICATED PER ORDERS. PRIOR TO GIVING DIGOXIN NOTED ON MAR HR DROPPED FROM 145 TO 90. WILL CONTINUE TO MONITOR.
[2019-05-30 16:49] LABS: ALANINE AMINOTRANSFERASE 32 U/L (12-78); ALBUMIN 2.4 g/dL (3.4-5.0); ANION GAP 7 mmol/L (5-15); CALCIUM 8.8 mg/dL (8.5-10.1); CHLORIDE 109 mmol/L (98-107); CREATININE 1.15 mg/dL (0.7-1.3)
[2019-05-30 16:54] LABS: ALKALINE PHOSPHATASE 90 U/L (45-117); BILIRUBIN,TOTAL 0.6 mg/dL (0.2-1.0); TOTAL PROTEIN 7.9 g/dL (6.4-8.2)
[2019-05-30] MEDS ORDERED: ENOXAPARIN 80 MG/0.8 ML SQ SCH (17:00)
--- NOTE | 2019-05-30 17:47 | NUR ---
PT REMAINS NSR ON MONITOR. DAUGHTER AT BEDSIDE. PT IN NO DISTRESS.
--- NOTE | 2019-05-30 18:00 | NUR ---
REMAINS SINUS RHYTHM ON MONITOR, NO DIFFICULTY BREATHING WHILE LYING IN RNEY
[2019-05-30] MEDS ORDERED: FUROSEMIDE 20 MG/2 ML IV ONE (18:30)
[2019-05-30] MEDS ORDERED: SODIUM CHLORIDE FLUSH 10ML SYR IVF PRN (19:00)
--- NOTE | 2019-05-30 19:01 | NUR ---
REPORT TO TIMOTHY NINO
[2019-05-30] MEDS ORDERED: FUROSEMIDE 20 MG/2 ML ONE (19:07)
[2019-05-30] MEDS ORDERED: SPIRIVA (20:25)
[2019-05-30] MEDS ORDERED: ONDANSETRON 2MG/ML, 2ML IVPush PRN (20:30)
[2019-05-30] MEDS ORDERED: DILTIAZEM 5 MG/ML, 5ML IVPush PRN (20:30)
[2019-05-30] MEDS ORDERED: LABETALOL 5MG/ML, 20ML IVPush PRN (20:30)
--- NOTE | 2019-05-30 20:56 | NUR ---
CALLED MICA BUSTAMANTE TO LET HER KNOW THAT THIS RN WAS UNABLE TO START IV ATBS.
[2019-05-30 21:20] VITALS: BP 136/70
[2019-05-30] MEDS: CARVEDILOL 3.125 MG TABLET PO SCH (21:23)
[2019-05-30 21:26] VITALS: BP 136/70
[2019-05-30] MEDS: CEFTRIAXONE PMX 1GM/50ML 50 ML IV SCH (21:29)
[2019-05-30 21:55] LABS: FREE T4 (FREE THYROXINE) 1.38 ng/dL (0.76-1.46)
[2019-05-30] MEDS: DILTIAZEM 125 MG in SODIUM CHLORIDE 0.9% 100 ML IV SCH (23:13)
[2019-05-30] MEDS: AZITHROMYCIN 500 MG in SODIUM CHLORIDE 0.9% 250 ML IV SCH (23:39)
[2019-05-31 00:32] VITALS: BP 131/77
[2019-05-31] MEDS ORDERED: FLU VACC QS2019-20 36MOS UP/PF 0.5 ML IM-VACC ONE (02:30)
[2019-05-31 05:37] LABS: BASOPHILS # (AUTO) 0.03 x10^3/uL (0-0.1); BASOPHILS % (AUTO) 0 % (0-1); EOSINOPHILS # (AUTO) 0.36 x10^3/uL (0-0.4); EOSINOPHILS % (AUTO) 5 % (1-7); LYMPHOCYTES # (AUTO) 0.98 x10^3/uL (1-3.4); LYMPHOCYTES % (AUTO) 14 % (22-44); MD NO; MEAN CORPUSCULAR HEMOGLOBIN 29.6 pg (27.5-34.5); MEAN CORPUSCULAR HGB CONC 32.7 g/dL (33.2-36.2); MEAN CORPUSCULAR VOLUME 90.5 fL (81-97); MEAN PLATELET VOLUME 6.6 fL (7.4-10.4); MONOCYTES % (AUTO) 11 % (2-9); NEUTROPHILS # (AUTO) 4.94 x10^3/uL (1.8-6.8); NEUTROPHILS % (AUTO) 70 % (42-75); PLATELET COUNT 304 x10^3/uL (130-400)
[2019-05-31 05:43] VITALS: BP 133/66
[2019-05-31] MEDS: CARVEDILOL 3.125 MG TABLET PO SCH ×2 (05:45→17:32)
[2019-05-31 05:50] LABS: ANION GAP 7 mmol/L (5-15); CALCIUM 8.4 mg/dL (8.5-10.1); CHLORIDE 108 mmol/L (98-107); CHOLESTEROL, TOTAL 135 mg/dL (140-239); CREATININE 1.29 mg/dL (0.7-1.3)
[2019-05-31 05:53] LABS: CHOL/HDL RATIO 3.9; HDL CHOL % 26 % (26-37); HDL CHOLESTEROL (DIRECT) 35 mg/dL (40-60); LDL CHOLESTEROL,CALCULATED 81 mg/dL (54-169); LDL/HDL RATIO 2.3 (0.5-3.0); TRIGLYCERIDES 97 mg/dL (50-200); VLDL CHOLESTEROL 19 mg/dL (0-25)
[2019-05-31] MEDS ORDERED: LEVOTHYROXINE 25 MCG TABLET PO SCH (06:00)
[2019-05-31] MEDS: ALBUTEROL/IPRATROPIUM 2.5MG/0.5MG, 3 ML NPPB SCH ×4 (06:48→19:27)
[2019-05-31 07:49] VITALS: BP 136/68
[2019-05-31] MEDS: SENNA/DOCUSATE TABLET PO SCH (09:00)
[2019-05-31] MEDS ORDERED: ENOXAPARIN 60 MG/0.6 ML SQ SCH (09:00)
[2019-05-31] MEDS: FUROSEMIDE 20 MG/2 ML IV SCH ×2 (10:07→17:31)
[2019-05-31] MEDS ORDERED: LIDOCAINE 1%, 10ML ONE (10:28)
[2019-05-31 13:30] VITALS: BP 116/52
[2019-05-31] MEDS: ACETAMINOPHEN 325 MG TABLET PO PRN (20:35)
[2019-05-31] MEDS: CEFTRIAXONE PMX 1GM/50ML 50 ML IV SCH (20:36)
[2019-05-31 20:40] VITALS: BP 132/69
[2019-05-31] MEDS: DILTIAZEM 125 MG in SODIUM CHLORIDE 0.9% 100 ML IV SCH (21:55)
[2019-05-31] MEDS: AZITHROMYCIN 500 MG in SODIUM CHLORIDE 0.9% 250 ML IV SCH (23:47)
[2019-06-01 01:41] VITALS: BP 122/68
[2019-06-01 05:44] VITALS: BP 113/51
[2019-06-01] MEDS: CARVEDILOL 3.125 MG TABLET PO SCH ×2 (05:45→18:59)
[2019-06-01] MEDS: ACETAMINOPHEN 325 MG TABLET PO PRN ×3 (05:49→21:53)
[2019-06-01 06:55] VITALS: BP 92/57
[2019-06-01] MEDS: ALBUTEROL/IPRATROPIUM 2.5MG/0.5MG, 3 ML NPPB SCH ×4 (07:00→19:26)
[2019-06-01] MEDS: SENNA/DOCUSATE TABLET PO SCH (09:12)
[2019-06-01] MEDS: FUROSEMIDE 20 MG/2 ML IV SCH ×2 (09:12→19:00)
[2019-06-01] MEDS: ENOXAPARIN 60 MG/0.6 ML SQ SCH (12:55)
[2019-06-01 14:14] VITALS: BP 92/43
[2019-06-01 18:58] VITALS: BP 97/39
[2019-06-01] MEDS: CEFTRIAXONE PMX 1GM/50ML 50 ML IV SCH (21:16)
[2019-06-01] MEDS: AZITHROMYCIN 500 MG in SODIUM CHLORIDE 0.9% 250 ML IV SCH (23:54)
[2019-06-01] MEDS: DILTIAZEM 125 MG in SODIUM CHLORIDE 0.9% 100 ML IV SCH (23:54)
[2019-06-02 00:20] VITALS: BP 114/62
[2019-06-02] MEDS: ENOXAPARIN 60 MG/0.6 ML SQ SCH ×3 (01:31→20:03)
[2019-06-02 05:01] LABS: CHLORIDE 104 mmol/L (98-107)
[2019-06-02 05:06] LABS: ANION GAP 5 mmol/L (5-15); CALCIUM 8.2 mg/dL (8.5-10.1); CREATININE 1.08 mg/dL (0.7-1.3)
[2019-06-02 05:08] LABS: BASOPHILS # (AUTO) 0.02 x10^3/uL (0-0.1); BASOPHILS % (AUTO) 0 % (0-1); EOSINOPHILS # (AUTO) 0.24 x10^3/uL (0-0.4); EOSINOPHILS % (AUTO) 2 % (1-7); LYMPHOCYTES # (AUTO) 1.45 x10^3/uL (1-3.4); LYMPHOCYTES % (AUTO) 14 % (22-44); MD NO; MEAN CORPUSCULAR HEMOGLOBIN 29.5 pg (27.5-34.5); MEAN CORPUSCULAR HGB CONC 32.3 g/dL (33.2-36.2); MEAN CORPUSCULAR VOLUME 91.1 fL (81-97); MEAN PLATELET VOLUME 7.1 fL (7.4-10.4); MONOCYTES # (AUTO) 1.14 x10^3/uL (0.2-0.8); MONOCYTES % (AUTO) 11 % (2-9); NEUTROPHILS # (AUTO) 7.22 x10^3/uL (1.8-6.8); NEUTROPHILS % (AUTO) 72 % (42-75); PLATELET COUNT 309 x10^3/uL (130-400); RED BLOOD COUNT 3.72 x10^6/uL (4.38-5.82); RED CELL DISTRIBUTION WIDTH 15.5 % (9.4-14.8)
[2019-06-02 06:09] VITALS: BP 104/58
[2019-06-02] MEDS: CARVEDILOL 3.125 MG TABLET PO SCH ×2 (06:12→17:13)
[2019-06-02 07:12] VITALS: BP 106/54
[2019-06-02] MEDS: ALBUTEROL/IPRATROPIUM 2.5MG/0.5MG, 3 ML NPPB SCH ×4 (07:58→19:27)
[2019-06-02] MEDS: SENNA/DOCUSATE TABLET PO SCH (08:21)
[2019-06-02] MEDS: DILTIAZEM 30 MG TABLET PO SCH ×3 (08:22→20:03)
[2019-06-02] MEDS: FUROSEMIDE 20 MG/2 ML IV SCH ×2 (08:22→17:14)
[2019-06-02 09:56] LABS: ALBUMIN 1.9 g/dL (3.4-5.0)
[2019-06-02 10:25] LABS: TOTAL PROTEIN 6.8 g/dL (6.4-8.2)
[2019-06-02 14:21] VITALS: BP 122/51
[2019-06-02 19:50] VITALS: BP 131/51
[2019-06-02] MEDS: ACETAMINOPHEN 325 MG TABLET PO PRN (20:03)
[2019-06-02] MEDS: CEFTRIAXONE PMX 1GM/50ML 50 ML IV SCH (21:38)
[2019-06-02] MEDS: AZITHROMYCIN 500 MG in SODIUM CHLORIDE 0.9% 250 ML IV SCH (23:30)
[2019-06-03 02:19] VITALS: BP 145/64
[2019-06-03] MEDS: DILTIAZEM 30 MG TABLET PO SCH (02:22)
[2019-06-03] MEDS: ACETAMINOPHEN 325 MG TABLET PO PRN ×2 (02:27→14:11)
[2019-06-03 05:37] LABS: CHLORIDE 103 mmol/L (98-107)
[2019-06-03 05:45] LABS: ALANINE AMINOTRANSFERASE 27 U/L (12-78); ALBUMIN 1.8 g/dL (3.4-5.0); ALKALINE PHOSPHATASE 78 U/L (45-117); ANION GAP 7 mmol/L (5-15); BILIRUBIN,TOTAL 0.5 mg/dL (0.2-1.0); CALCIUM 8.5 mg/dL (8.5-10.1); CREATININE 0.99 mg/dL (0.7-1.3); TOTAL PROTEIN 6.7 g/dL (6.4-8.2)
[2019-06-03] MEDS: CARVEDILOL 3.125 MG TABLET PO SCH ×2 (06:25→17:37)
[2019-06-03] MEDS ORDERED: POTASSIUM CHLORIDE 20 MEQ TAB.ER.PRT PO ONE (06:30)
[2019-06-03] MEDS: ALBUTEROL/IPRATROPIUM 2.5MG/0.5MG, 3 ML NPPB SCH ×4 (06:40→19:14)
[2019-06-03 07:58] VITALS: BP 103/53
[2019-06-03] MEDS: SENNA/DOCUSATE TABLET PO SCH (09:29)
[2019-06-03] MEDS: ENOXAPARIN 60 MG/0.6 ML SQ SCH ×3 (09:29→21:20)
[2019-06-03] MEDS: FUROSEMIDE 20 MG/2 ML IV SCH (09:29)
[2019-06-03 15:18] VITALS: BP 137/60
[2019-06-03] MEDS: CEFTRIAXONE PMX 1GM/50ML 50 ML IV SCH (21:20)
[2019-06-03 21:22] VITALS: BP 143/66
[2019-06-03] MEDS: AZITHROMYCIN 500 MG in SODIUM CHLORIDE 0.9% 250 ML IV SCH (22:50)
[2019-06-04 02:40] VITALS: BP 124/54
[2019-06-04] MEDS: ACETAMINOPHEN 325 MG TABLET PO PRN ×2 (02:52→20:39)
[2019-06-04 05:24] LABS: BASOPHILS # (AUTO) 0.01 x10^3/uL (0-0.1); BASOPHILS % (AUTO) 0 % (0-1); EOSINOPHILS # (AUTO) 0.33 x10^3/uL (0-0.4); EOSINOPHILS % (AUTO) 5 % (1-7); LYMPHOCYTES # (AUTO) 1.06 x10^3/uL (1-3.4); LYMPHOCYTES % (AUTO) 16 % (22-44); MD NO; MEAN CORPUSCULAR HEMOGLOBIN 29.5 pg (27.5-34.5); MEAN CORPUSCULAR HGB CONC 32.7 g/dL (33.2-36.2); MEAN CORPUSCULAR VOLUME 90.1 fL (81-97); MEAN PLATELET VOLUME 6.7 fL (7.4-10.4); MONOCYTES # (AUTO) 0.92 x10^3/uL (0.2-0.8); MONOCYTES % (AUTO) 14 % (2-9); NEUTROPHILS # (AUTO) 4.46 x10^3/uL (1.8-6.8); NEUTROPHILS % (AUTO) 66 % (42-75); PLATELET COUNT 327 x10^3/uL (130-400); RED BLOOD COUNT 3.46 x10^6/uL (4.38-5.82); RED CELL DISTRIBUTION WIDTH 15.3 % (9.4-14.8)
[2019-06-04 05:26] LABS: ANION GAP 6 mmol/L (5-15); CALCIUM 8.5 mg/dL (8.5-10.1); CHLORIDE 106 mmol/L (98-107); CREATININE 0.86 mg/dL (0.7-1.3)
[2019-06-04] MEDS: CARVEDILOL 3.125 MG TABLET PO SCH ×2 (06:46→17:07)
[2019-06-04] MEDS: ALBUTEROL/IPRATROPIUM 2.5MG/0.5MG, 3 ML NPPB SCH ×4 (06:50→19:00)
[2019-06-04 07:45] VITALS: BP 122/57
[2019-06-04] MEDS: ENOXAPARIN 60 MG/0.6 ML SQ SCH ×2 (10:05→20:39)
[2019-06-04] MEDS: POTASSIUM CHLORIDE 20 MEQ TAB.ER.PRT PO SCH (10:05)
[2019-06-04] MEDS: FUROSEMIDE 40 MG TABLET PO SCH (10:05)
[2019-06-04] MEDS: SENNA/DOCUSATE TABLET PO SCH (10:11)
[2019-06-04 12:50] VITALS: BP 129/64
[2019-06-04] MEDS ORDERED: OMNIPAQUE 350 MG/ML, 75ML BOTTLE ONE (15:36)
[2019-06-04 17:07] VITALS: BP 154/64
[2019-06-04 19:02] VITALS: BP 137/66
[2019-06-04] MEDS: CEFTRIAXONE PMX 1GM/50ML 50 ML IV SCH (20:39)
[2019-06-05] MEDS: AZITHROMYCIN 500 MG in SODIUM CHLORIDE 0.9% 250 ML IV SCH (00:03)
[2019-06-05 00:28] VITALS: BP 166/71
[2019-06-05] MEDS: CARVEDILOL 3.125 MG TABLET PO SCH ×2 (06:18→17:22)
[2019-06-05 06:45] VITALS: BP 137/67
[2019-06-05] MEDS: ALBUTEROL/IPRATROPIUM 2.5MG/0.5MG, 3 ML NPPB SCH ×3 (07:00→14:15)
[2019-06-05] MEDS: POTASSIUM CHLORIDE 20 MEQ TAB.ER.PRT PO SCH (09:17)
[2019-06-05] MEDS: ENOXAPARIN 60 MG/0.6 ML SQ SCH (09:18)
[2019-06-05] MEDS: FUROSEMIDE 40 MG TABLET PO SCH (09:18)
[2019-06-05] MEDS: SENNA/DOCUSATE TABLET PO SCH (09:18)
[2019-06-05 12:15] VITALS: BP 120/62
[2019-06-05] MEDS ORDERED: AZIT500T PO (16:55)
[2019-06-05] MEDS ORDERED: APIX5TAB PO (16:55)
[2019-06-05] MEDS ORDERED: CEFD300C37 PO (16:55)
[2019-06-05] MEDS ORDERED: IPRA3AMP30 IH (16:55)
[2019-06-05] MEDS ORDERED: FURO-93 PO (16:55)
[2019-06-05 17:21] VITALS: BP 149/67
[2019-06-05] MEDS ORDERED: APIXABAN 5 MG TABLET PO SCH (21:00)
== END 2019-06-05 19:36 | disposition home or self-care (01) | DRG 291 ==
LOC: ED 16:17 → EDIP 18:46 → 5SO 21:06
PROVIDERS: ADMIT Family Medicine; ATTEND Family Medicine
PROC: 0W993ZZ Drainage of Right Pleural Cavity, Percutaneous Approach (ICD-10-PCS; principal; 2019-05-31)
DX: I13.0 Hypertensive heart and chronic kidney disease with heart failure and stage 1 through stage 4 chronic kidney disease, or unspecified chronic kidney disease (principal); J96.21 Acute and chronic respiratory failure with hypoxia; E43 Unspecified severe protein-calorie malnutrition; I50.43 Acute on chronic combined systolic (congestive) and diastolic (congestive) heart failure; J18.1 Lobar pneumonia, unspecified organism; J44.1 Chronic obstructive pulmonary disease with (acute) exacerbation; D68.69 Other thrombophilia; J91.8 Pleural effusion in other conditions classified elsewhere; J44.0 Chronic obstructive pulmonary disease with (acute) lower respiratory infection; I48.0 Paroxysmal atrial fibrillation; D64.9 Anemia, unspecified; E11.22 Type 2 diabetes mellitus with diabetic chronic kidney disease; E11.51 Type 2 diabetes mellitus with diabetic peripheral angiopathy without gangrene; E78.5 Hyperlipidemia, unspecified; F17.200 Nicotine dependence, unspecified, uncomplicated; I08.0 Rheumatic disorders of both mitral and aortic valves; I25.10 Atherosclerotic heart disease of native coronary artery without angina pectoris; K21.9 Gastro-esophageal reflux disease without esophagitis; R59.0 Localized enlarged lymph nodes; N18.9 Chronic kidney disease, unspecified; N40.0 Benign prostatic hyperplasia without lower urinary tract symptoms; Z79.4 Long term (current) use of insulin; Z68.22 Body mass index [BMI] 22.0-22.9, adult; Z82.49 Family history of ischemic heart disease and other diseases of the circulatory system; Z95.820 Peripheral vascular angioplasty status with implants and grafts; Z99.81 Dependence on supplemental oxygen; Z90.49 Acquired absence of other specified parts of digestive tract; Z79.899 Other long term (current) drug therapy; Z95.5 Presence of coronary angioplasty implant and graft; Z88.1 Allergy status to other antibiotic agents; Z88.8 Allergy status to other drugs, medicaments and biological substances; Z91.048 Other nonmedicinal substance allergy status; Z23 Encounter for immunization
CPT/HCPCS: 32555; 36415; 71045; 71260; 74018; 80048; 80053; 80061; 82040; 82945; 82962; 83615; 83735; 83880; 84100; 84155; 84157; 84439; 84443; 84481; 84484; 85014; 85018; 85025; 87040; 87070; 87075; 87205; 88112; 88305; 89051; 90686; 93005; 93306; 94640; 99285; G0378; J0456; J0696; J1650; J7620; Q9967; J1160; J1940; J7050

== ENCOUNTER 2019-06-06 13:51 | Emergency (ER) | payer MEDICARE, OTHER ==
[~2019-06-06] VITALS: Ht 172.7 cm; Wt 67.1 kg
[~2019-06-06 13:51] MED LIST changes: +APIX5TAB PO; +AZIT500T PO; +FURO-93 PO
[2019-06-06 15:10] LABS: BASOPHILS # (AUTO) 0.04 x10^3/uL (0-0.1); BASOPHILS % (AUTO) 1 % (0-1); EOSINOPHILS # (AUTO) 0.41 x10^3/uL (0-0.4); EOSINOPHILS % (AUTO) 6 % (1-7); LYMPHOCYTES % (AUTO) 14 % (22-44); MD NO; MEAN CORPUSCULAR HEMOGLOBIN 29.6 pg (27.5-34.5); MEAN CORPUSCULAR HGB CONC 32.9 g/dL (33.2-36.2); MEAN CORPUSCULAR VOLUME 90.2 fL (81-97); MEAN PLATELET VOLUME 6.8 fL (7.4-10.4); MONOCYTES # (AUTO) 0.78 x10^3/uL (0.2-0.8); MONOCYTES % (AUTO) 11 % (2-9); NEUTROPHILS # (AUTO) 4.84 x10^3/uL (1.8-6.8); NEUTROPHILS % (AUTO) 69 % (42-75); PLATELET COUNT 388 x10^3/uL (130-400); RED BLOOD COUNT 3.34 x10^6/uL (4.38-5.82); RED CELL DISTRIBUTION WIDTH 15.4 % (9.4-14.8)
--- NOTE | 2019-06-06 15:16 | NUR ---
Patient is attempting to provide urine sample.
[2019-06-06 15:22] LABS: ALANINE AMINOTRANSFERASE 82 U/L (12-78); ALBUMIN 2.2 g/dL (3.4-5.0); ANION GAP 6 mmol/L (5-15); CALCIUM 8.7 mg/dL (8.5-10.1); CHLORIDE 103 mmol/L (98-107); CREATININE 1.13 mg/dL (0.7-1.3)
[2019-06-06 15:24] LABS: ALKALINE PHOSPHATASE 84 U/L (45-117); BILIRUBIN,TOTAL 0.2 mg/dL (0.2-1.0); TOTAL PROTEIN 7.5 g/dL (6.4-8.2)
--- NOTE | 2019-06-06 16:18 | NUR ---
Patient continues to attempt urine sample but cannot provide one, states that he doesn't have the urge to go. Dr. Barnett notified, OK to give patient water.
--- NOTE | 2019-06-06 17:25 | NUR ---
Patient drinking water, does not feel the urge to urinate. Spoke with Dr. Barnett, Dr. Barnett requests straight cath for specimen unless patient can urinate for sample. Patient again attempting to urinate.
--- NOTE | 2019-06-06 17:35 | NUR ---
Patient able to provide urine without catheter.
[2019-06-06 17:55] LABS: MICROSCOPIC AUTO
[2019-06-06 17:57] LABS: CULTURE INDICATED? NO
[2019-06-06 18:36] VITALS: BP 124/41
--- NOTE | 2019-06-06 18:36 | NUR ---
Patient resting in [facility], no complaints or requests at this time. Results posted, Dr. Barnett to discuss results.
--- NOTE | 2019-06-06 18:49 | NUR ---
TASK RN: Provided report to MICA Yepez. All questions answered. MICA Yepez to assume care of this pt.
--- NOTE | 2019-06-06 18:57 | NUR ---
pt placed for recheck by erp
== END 2019-06-06 20:17 | disposition home or self-care (01) ==
LOC: ED 20:00
DX: R10.30 Lower abdominal pain, unspecified (principal); D63.8 Anemia in other chronic diseases classified elsewhere; N39.8 Other specified disorders of urinary system; I11.0 Hypertensive heart disease with heart failure; I50.9 Heart failure, unspecified; I25.10 Atherosclerotic heart disease of native coronary artery without angina pectoris; E11.9 Type 2 diabetes mellitus without complications; J44.9 Chronic obstructive pulmonary disease, unspecified; Z90.89 Acquired absence of other organs; Z87.891 Personal history of nicotine dependence
CPT/HCPCS: 36415; 71045; 80053; 81001; 83880; 85025; 93005; 99284

== ENCOUNTER → 2019-07-27 | Outpatient (CLI) | payer MEDICARE, OTHER ==
[~2019-07-27] MED LIST changes: +AZIT500T10 PO; -AZIT500T5 PO; +CARV-39 PO; -DOXY100T10 PO; +DOXY100T23 PO; +FLUT1BLS3 IH; +FURO20TA3 PO; +IPRA3AMP30 NEB; +LACT1CAP44 PO; +METH10TA6 PO; +[UNRECOGNIZED DRUG - OTHER] PO
== END | disposition home or self-care (01) ==
LOC: PETCFH 07-26 09:20
PROVIDERS: ATTEND Nurse Practitioner
DX: I31.3 Pericardial effusion (noninflammatory) (principal); J90 Pleural effusion, not elsewhere classified; R91.8 Other nonspecific abnormal finding of lung field
CPT/HCPCS: 78815; A9552

== ENCOUNTER → 2020-08-25 | Outpatient (CLI) | payer MEDICARE, OTHER ==
[~2020-08-25] MED LIST changes: +AMLO-211 PO; -AMLO10TA8 PO; +ASCO500T9 PO; +AZIT250T PO; +CHOL500045 PO; -PIOG15TA4 PO; +PIOG15TA69 PO
== END | disposition home or self-care (01) ==
LOC: CFH 09:53
PROVIDERS: ATTEND Internal Medicine
DX: J43.2 Centrilobular emphysema (principal); J90 Pleural effusion, not elsewhere classified; K44.9 Diaphragmatic hernia without obstruction or gangrene; J96.11 Chronic respiratory failure with hypoxia
CPT/HCPCS: 71250

== ENCOUNTER 2020-11-17 13:14 | Emergency (ER) | payer MEDICARE, OTHER ==
[~2020-11-17] VITALS: Ht 172.7 cm; Wt 78.0 kg
[~2020-11-17 13:14] MED LIST changes: +ASPI-963 PO; +CARV12.5 PO; -LISI40TA PO; +LISI40TA9 PO
--- NOTE | 2020-11-17 13:19 | NUR ---
Pt brought in be [facility] from home with chief complaint of intermittent worsening sob and coughing up blood since . Pt dc'd from [facility] after NSTEMI, no interventions done. PT arrives A&O 4, no complaints of CP.
--- NOTE | 2020-11-17 13:47 | NUR ---
PAU Sahm at bedside for evaluation.
[2020-11-17] MEDS ORDERED: ASPIRIN 81 MG TABLET CHEW ONE (13:49)
[2020-11-17] MEDS ORDERED: SODIUM CHLORIDE FLUSH 10ML SYR IVF ONE (14:00)
[2020-11-17] MEDS ORDERED: ASPIRIN 81 MG TABLET CHEW PO ONE (14:00)
--- NOTE | 2020-11-17 14:00 | NUR ---
Pts daughter- Lida Higuera [phone]
--- NOTE | 2020-11-17 14:05 | NUR ---
Pt refused ASA, "[facility] told [facility]
[2020-11-17 14:25] LABS: ALBUMIN 2.5 g/dL (3.4-5.0); ANION GAP 8 mmol/L (5-15); CALCIUM 8.6 mg/dL (8.5-10.1); CHLORIDE 108 mmol/L (98-107)
[2020-11-17 14:27] LABS: INTERNATIONAL NORMALIZED RATIO 1.11 (0.93-1.1); PROTHROMBIN TIME 11.9 Seconds (9.6-11.5)
--- NOTE | 2020-11-17 14:27 | NUR ---
Pt resting in bed, call light in reach.
[2020-11-17 14:31] LABS: ALANINE AMINOTRANSFERASE 33 U/L (12-78); ALKALINE PHOSPHATASE 82 U/L (45-117); BILIRUBIN,TOTAL 0.4 mg/dL (0.2-1.0); CREATININE 1.25 mg/dL (0.7-1.3); TOTAL PROTEIN 7.2 g/dL (6.4-8.2)
[2020-11-17 14:41] LABS: BASOPHILS % (AUTO) 1 % (0-1); EOSINOPHILS % (AUTO) 3 % (1-7); LYMPHOCYTES % (AUTO) 12 % (22-44); MEAN CORPUSCULAR HEMOGLOBIN 31.5 pg (27.5-34.5); MEAN CORPUSCULAR HGB CONC 33.4 g/dL (33.2-36.2); MEAN PLATELET VOLUME 7.5 fL (7.4-10.4); MONOCYTES % (AUTO) 10 % (2-9); NEUTROPHILS % (AUTO) 76 % (42-75); PLATELET COUNT 308 x10^3/uL (130-400); RED BLOOD COUNT 3.06 x10^6/uL (4.38-5.82); RED CELL DISTRIBUTION WIDTH 16.7 % (9.4-14.8)
[2020-11-17 14:45] LABS: MD NO
--- NOTE | 2020-11-17 15:37 | NUR ---
DR. BURDEN AT [facility] TO DISCUSS POC
[2020-11-17 15:45] VITALS: BP 120/40
--- NOTE | 2020-11-17 16:34 | NUR ---
discharge instructions reviewed
== END 2020-11-17 17:33 | disposition home or self-care (01) ==
LOC: ED 14:32
DX: I25.10 Atherosclerotic heart disease of native coronary artery without angina pectoris (principal); I27.20 Pulmonary hypertension, unspecified; I21.09 ST elevation (STEMI) myocardial infarction involving other coronary artery of anterior wall; J43.9 Emphysema, unspecified; E11.9 Type 2 diabetes mellitus without complications; I48.91 Unspecified atrial fibrillation; Z99.81 Dependence on supplemental oxygen; Z90.89 Acquired absence of other organs
CPT/HCPCS: 36415; 71045; 80053; 83880; 84484; 85025; 85610; 85730; 86850; 86900; 93005; 99285